=== PATIENT | female | born 1995 | race African-American/Black ===

== ENCOUNTER → 2018-09-25 | Outpatient (CLI) | payer OTHER ==
[2018-09-25 12:01] LABS: HEMATOCRIT 18.2 % (36.0-47.0); MEAN CORPUSCULAR HEMOGLOBIN 27.1 pg (27.0-33.4); MEAN CORPUSCULAR HGB CONC 36.6 g/dL (32.0-36.0); MEAN CORPUSCULAR VOLUME 74 fl (80-97); PLATELET COUNT 651 10^3/uL (150-450); RED BLOOD COUNT 2.45 10^6/uL (3.72-5.28); WHITE BLOOD COUNT 11.7 10^3/uL (4.0-10.5)
[2018-09-25 13:18] LABS: HEMOGLOBIN 6.7 g/dL (12.0-15.5)
== END ==
LOC: OD 11:26
DX: D57.1 Sickle-cell disease without crisis (principal)
CPT/HCPCS: 36415; 85027